=== PATIENT | female | born 1955 | race Caucasian/White ===

== ENCOUNTER 2018-08-26 07:40 | Day surgery (SDC) | payer BC, SELFPAY ==
[~2018-08-26] VITALS: Ht 157.5 cm; Wt 67.6 kg
[~2018-08-26 07:40] MED LIST: ASPI81CH PO; Adult Low Dose81 MG PO; B Complete1 EACH PO; B-121000 MC2 PO; B-6 PO; Bupropion HCl200 MG PO; FISH OIL PO; FISH1000 PO; LORA.5 PO; Multivitamin1 EAC1 PO; Norco 5-325 Ta1 EACH PO; OMEP40CA12 PO; Omeprazole20 M1 PO; VITAMIN B12 PO; VITAMIN B6 PO; VITAMIN C; VITAMIN C PO; VITAMIN D-32000 UNIT PO; VITAMIN D3 5000 PO; Vitamin B Comple1 EA PO; WOMEN'S DAILY1 EACH PO
--- NOTE | 2018-08-26 08:13 | NUR ---
History, Chart, Medications and Allergies reviewed before start of procedure. Patient confirms NPO status and agrees with scheduled surgery. Patient States Post-Procedure ride home has been arranged with her .
--- NOTE | 2018-08-26 10:36 | NUR ---
PT TO STEPDOWN. AWAKE, CONVERSING WITH STAFF. DENIES PAIN OR DISCOMFORT. DRESSING TO RIGHT BREAST CDI. TO BEDSIDE AT THIS TIME.
--- NOTE | 2018-08-26 11:00 | NUR ---
REVIEWED DISCHARGE INSTRUCTIONS WITH PATIENT AND , BOTH OF WHOM VERBALIZED UNDERSTANDING OF ALL INSTRUCTIONS GIVEN. QUESTIONS ASKED/ANSWERED. PT CONTINUES TO HAVE NO CO PAIN OR DISCOMFORT.
--- NOTE | 2018-08-26 11:17 | NUR ---
IV DC TIP INTACT. PT DC HOME VIA WC WITH TO DRIVE HER.
== END 2018-08-26 23:00 | disposition home or self-care (01) ==
LOC: ORSCMMR 07:40 → ORD 09:00 → ORSCMMR 09:00
PROVIDERS: Surgery
PROC: 0HBT0ZX Excision of Right Breast, Open Approach, Diagnostic (ICD-10-PCS; principal; 2018-08-26 09:00)
DX: N60.41 Mammary duct ectasia of right breast (principal); N64.52 Nipple discharge; D24.1 Benign neoplasm of right breast; Z87.891 Personal history of nicotine dependence; Z79.82 Long term (current) use of aspirin
CPT/HCPCS: 88305; J0690; J1100; J2250; J2370; J2405; J2704; J3010; J7120

== ENCOUNTER 2019-12-11 09:05 | Day surgery (SDC) | payer BC ==
[~2019-12-11] VITALS: Ht 157.5 cm; Wt 62.8 kg
[~2019-12-11 09:05] MED LIST changes: +Prinivil10 MG PO
== END 2019-12-11 12:20 | disposition home or self-care (01) ==
LOC: ORSCSDS 09:05
PROVIDERS: Orthopaedic Surgery
PROC: 0LQ24ZZ Repair Left Shoulder Tendon, Percutaneous Endoscopic Approach (ICD-10-PCS; principal; 2019-12-11 09:30)
PROC: 0RNK4ZZ Release Left Shoulder Joint, Percutaneous Endoscopic Approach (ICD-10-PCS; principal; 2019-12-11 09:30)
DX: M75.112 Incomplete rotator cuff tear or rupture of left shoulder, not specified as traumatic (principal); M75.22 Bicipital tendinitis, left shoulder; M75.42 Impingement syndrome of left shoulder; I10 Essential (primary) hypertension; K21.9 Gastro-esophageal reflux disease without esophagitis; Z79.899 Other long term (current) drug therapy; Z79.82 Long term (current) use of aspirin
CPT/HCPCS: C1713; J0171; J0690; J2250; J2370; J2704; J2710; J3010; J7120